=== PATIENT | female | born 1975 | race Two or more races ===

== ENCOUNTER → 2021-10-13 09:31 | Outpatient (BNVA) | payer OTHER, SELFPAY | PROVIDERS: PCP Internal Medicine; Visit Provider Internal Medicine Rheumatology | DX: Z79.899 Other long term (current) drug therapy (principal); M32.9 Systemic lupus erythematosus, unspecified; R76.0 Raised antibody titer; D47.2 Monoclonal gammopathy; M79.7 Fibromyalgia ==

== ENCOUNTER 2022-01-28 11:33 | Outpatient (REF) | payer OTHER, SELFPAY ==
[2022-01-28 13:59] LABS: MANUAL DIFF FLAG NO
[2022-01-28 14:10] LABS: Basophils Percent Auto 0.5 % (0-2); Eosinophils Absolute Auto 0.1 X10*3/uL (0.0-0.4); Eosinophils Percent Auto 1.1 % (0-4); Hematocrit 37.1 % (37.0-47.0); Hemoglobin 11.1 g/dl (12.0-16.0); Imm Gran Abs Auto 0.02 X10*3/uL (0.00-0.03); Imm Gran Pct Auto 0.4 % (0.0-0.4); Lymphocytes Absolute Auto 1.3 X10*3/uL (1.2-4.9); Lymphocytes Percent Auto 23.4 % (20-40); Mean Corpuscular HGB Conc 29.9 g/dl (31.0-35.0); Mean Corpuscular Hemoglobin 21.7 pg (27.0-33.0); Mean Corpuscular Volume 72.6 fL (80.0-98.0); Mean Platelet Volume 10.9 fL (9.4-12.3); Monocytes Absolute Auto 0.3 X10*3/uL (0.1-1.2); Monocytes Percent Auto 5.9 % (2-11); Neutrophils Absolute Auto 3.9 x10*3/uL (2.0-8.3); Neutrophils Percent Auto 68.7 % (45-73); Platelet Count 329 X10*3/uL (160-400); Red Blood Count 5.11 X10*6/uL (4.20-5.50); Red Cell Distribution Width 15.4 % (11.0-16.0); White Blood Count 5.6 X10*3/uL (4.8-10.8)
[2022-01-28 14:24] LABS: C Reactive Protein 2.93 mg/dL (< or = 0.50); Estimated Glomerular Filt Rate > 60
[2022-01-28 14:26] LABS: Creatinine Urine 241.89 mg/dL; Protein/Creatinine Ratio, Ur 0.05 (<0.2); Total Protein Urine Random 13 mg/dL (<12)
[2022-01-28 15:06] LABS: Erythrocyte Sedimentation Rate 9 MM/HR (0-20)
[2022-01-29 10:56] LABS: Complement C3 113 mg/dL (83-193)
[2022-02-04 06:05] LABS: Anti DNA DS Antibody 2 IU/mL
== END 2022-01-28 11:34 | disposition home or self-care (01) ==
LOC: HO.10HDL 11:33
PROVIDERS: Visit Provider Internal Medicine Rheumatology
DX: M32.9 Systemic lupus erythematosus, unspecified (principal)
CPT/HCPCS: 36415; 82565; 84156; 85025; 85652; 86140; 86160; 86225

== ENCOUNTER 2022-03-26 11:00 | Outpatient (REF) | payer OTHER, SELFPAY ==
[2022-03-26 13:34] LABS: MANUAL DIFF FLAG NO
[2022-03-26 13:41] LABS: Basophils Percent Auto 0.3 % (0-2); Eosinophils Absolute Auto 0.1 X10*3/uL (0.0-0.4); Eosinophils Percent Auto 0.8 % (0-4); Hemoglobin 10.8 g/dl (12.0-16.0); Imm Gran Abs Auto 0.02 X10*3/uL (0.00-0.03); Imm Gran Pct Auto 0.3 % (0.0-0.4); Lymphocytes Absolute Auto 1.5 X10*3/uL (1.2-4.9); Lymphocytes Percent Auto 24.8 % (20-40); Mean Corpuscular Volume 73.5 fL (80.0-98.0); Mean Platelet Volume 11.1 fL (9.4-12.3); Monocytes Absolute Auto 0.4 X10*3/uL (0.1-1.2); Monocytes Percent Auto 6.4 % (2-11); Neutrophils Absolute Auto 4.1 x10*3/uL (2.0-8.3); Neutrophils Percent Auto 67.4 % (45-73); Platelet Count 327 X10*3/uL (160-400); Red Cell Distribution Width 15.1 % (11.0-16.0); White Blood Count 6.1 X10*3/uL (4.8-10.8)
[2022-03-26 13:51] LABS: Anion Gap 15 (12-20); Blood Urea Nitrogen 10 mg/dL (9-16); C Reactive Protein 2.49 mg/dL (< or = 0.50); Calcium 8.8 mg/dL (8.4-10.2); Carbon Dioxide 27 mmol/L (22-29); Chloride 103 mmol/L (96-108); Estimated Glomerular Filt Rate > 60; Glucose Random 87 mg/dL (60-115); Sodium 141 mmol/L (135-145)
[2022-03-26 14:05] LABS: Creatinine Urine 42.82 mg/dL; Total Protein Urine Random < 7 mg/dL (<12)
[2022-03-26 14:07] LABS: Alanine Aminotransferase 10 U/L (0-31); Albumin Level 3.9 g/dL (3.5-5.0); Alkaline Phosphatase 65 U/L (39-117); Anion Gap 14 (12-20); Aspartate Amino Transferase 13 U/L (5-31); Bilirubin Total 0.3 mg/dL (0.0-1.0); Blood Urea Nitrogen 9 mg/dL (9-16); Calcium 8.7 mg/dL (8.4-10.2); Carbon Dioxide 27 mmol/L (22-29); Chloride 103 mmol/L (96-108); Estimated Glomerular Filt Rate > 60; Glucose Random 84 mg/dL (60-115); Potassium 4.1 mmol/L (3.3-5.1); Sodium 140 mmol/L (135-145); Total Protein 6.6 g/dL (6.5-8.0)
[2022-03-26 14:34] LABS: Erythrocyte Sedimentation Rate 10 MM/HR (0-20)
[2022-03-27 14:46] LABS: Beta-2 Microglobulin, Serum 1.67 mg/L (< OR = 2.51)
[2022-03-27 23:27] LABS: PES - Abn Protein Band 1 0.3 g/dL (NONE DETECTED); Prot Elec - Albumin 3.8 g/dL (3.8-4.8); Prot Elec - Alpha1 0.3 g/dL (0.2-0.3); Prot Elec - Alpha2 0.7 g/dL (0.5-0.9); Prot Elec - Beta 1 0.5 g/dL (0.4-0.6); Prot Elec - Beta 2 0.3 g/dL (0.2-0.5); Prot Elec - Gamma 1.1 g/dL (0.8-1.7); Prot Elec - Total Protein 6.7 g/dL (6.1-8.1)
[2022-03-29 10:51] LABS: Complement C3 112 mg/dL (83-193)
[2022-03-29 18:52] LABS: Anti DNA DS Antibody 1 IU/mL
[2022-03-30 12:11] LABS: IgA 141 mg/dL (47-310); IgG 1216 mg/dL (600-1640); IgM 127 mg/dL (50-300)
== END 2022-03-26 11:01 | disposition home or self-care (01) ==
LOC: HO.10HDL 11:00
PROVIDERS: Absent Provider Internal Medicine Medical Oncology; Visit Provider Internal Medicine Rheumatology
DX: D47.2 Monoclonal gammopathy (principal); M32.9 Systemic lupus erythematosus, unspecified; R76.0 Raised antibody titer; D50.9 Iron deficiency anemia, unspecified; D68.2 Hereditary deficiency of other clotting factors; Z79.899 Other long term (current) drug therapy
CPT/HCPCS: 36415; 80048; 80053; 82232; 82784; 84156; 84165; 85025; 85652; 86140; 86160; 86225; 86334

== ENCOUNTER 2022-06-08 16:32 | Outpatient (REF) | payer OTHER, SELFPAY ==
--- NOTE | ~2022-06-08 | CT_ITS ---
EXAMINATION: CT CHEST WITHOUT CONTRAST CLINICAL INFORMATION: Chronic dips COMPARISON: Chest x-ray 04/20/2018. TECHNIQUE: Multidetector volumetric CT imaging of the chest was done. Axial MIP volume rendering provided. Sagittal and coronal reformatted images were obtained. This CT examination was performed using dose optimization techniques as appropriate, variously including the following: *Automated exposure control *Adjustment of mA and/or kV according to patient size (this includes techniques or standardized protocols for targeted exams where dose is matched to indication/reason for exam; i.e. extremities or head) *Use of iterative reconstruction technique DLP: 179 mGy-cm FINDINGS: EDGER HAND: The lungs are well-expanded. LUNGS: The lungs are well-expanded and clear of acute pneumonic process. There are no pulmonary nodules, groundglass density or consolidation. MEDIASTINUM: The thyroid lobes are symmetrical and normal. The central trachea and the bronchi widely patent. Heart size and the great vessels are normal caliber. There is no pericardial effusion. Central trachea and the bronchi widely patent. Thyroid lobes are symmetrical and normal. CORONARY ARTERY CALCIFICATION: None visualized on this study. PLEURA: There is no pleural effusion. No pleural mass or thickening. AXILLA: There are numerous bilateral neck lymph nodes seen. Dense breast tissue is visualized centrally. UPPER ABDOMEN: Visualized liver, spleen, pancreas and bilateral adrenal glands are unremarkable. OSSEOUS STRUCTURES: No aggressive lytic or sclerotic process seen. There is mild ventral spondylosis mid and lower dorsal spine. CT/CT chest wo IV con IMPRESSION: Unremarkable CT chest exam. Fleischner guidelines were followed.
== END 2022-06-08 16:33 | disposition home or self-care (01) ==
LOC: HO.CT 16:32
PROVIDERS: PCP Internal Medicine; Visit Provider Physician Assistant
DX: R06.00 Dyspnea, unspecified (principal)
CPT/HCPCS: 71250

== ENCOUNTER → 2022-06-29 10:33 | Outpatient (BNVA) | payer OTHER, SELFPAY | PROVIDERS: PCP Internal Medicine; Visit Provider Hospitalist | DX: R06.00 Dyspnea, unspecified (principal); R00.0 Tachycardia, unspecified; J45.909 Unspecified asthma, uncomplicated; R76.0 Raised antibody titer; M32.9 Systemic lupus erythematosus, unspecified | CPT/HCPCS: 94618 ==

== ENCOUNTER → 2022-07-13 12:02 | Outpatient (REF) | payer OTHER, SELFPAY ==
--- NOTE | ~2022-07-13 | XR_ITS ---
EXAMINATION: XR CHEST CLINICAL INFORMATION: Tachycardia COMPARISON: April 20, 2018 TECHNIQUE: 2 views of the chest were obtained. FINDINGS: No significant abnormality is noted involving the heart, lungs, mediastinum, bony thorax or soft tissues. XR/XR chest 2V IMPRESSION: No acute disease.
--- NOTE | ~2022-07-13 | NM_ITS ---
EXAMINATION: PULMONARY PERFUSION STUDY CLINICAL INFORMATION: Tachycardia, unspecified. COMPARISON: No previous lung scan is available for comparison. Radiographs of the chest dated 07/13/2022, the same date as this lung scan, are available for comparison. TECHNIQUE: Following the intravenous injection of 4.0 mCi Tc-99m MAA, the lungs were imaged in the anterior and posterior, left and right lateral and ARMENIAN, ESPINO, LPO, and RPO projections using a gamma scintillation camera. FINDINGS: No segmental perfusion defects are present. There is homogeneous distribution of activity bilaterally. There are no focal anatomic appearing perfusion defects present. NM/NM pul perfusion IMPRESSION: Normal radionuclide lung perfusion scan.
== END ==
LOC: HO.NUCMED 12:02
PROVIDERS: PCP Internal Medicine; Visit Provider Hospitalist
DX: R06.00 Dyspnea, unspecified (principal); R00.0 Tachycardia, unspecified; R76.0 Raised antibody titer
CPT/HCPCS: 71046; 78580; A9540

== ENCOUNTER 2024-09-04 11:21 | Outpatient (REF) | payer BC, SELFPAY ==
[2024-09-04 11:42] LABS: MANUAL DIFF FLAG NO
[2024-09-04 12:03] LABS: Basophils Percent Auto 0.4 % (0-2); Eosinophils Absolute Auto 0.1 X10*3/uL (0.0-0.4); Eosinophils Percent Auto 1.1 % (0-4); Hematocrit 41.5 % (37.0-47.0); Hemoglobin 13.5 g/dl (12.0-16.0); Imm Gran Abs Auto 0.01 X10*3/uL (0.00-0.03); Imm Gran Pct Auto 0.1 % (0.0-0.4); Lymphocytes Absolute Auto 1.7 X10*3/uL (1.2-4.9); Lymphocytes Percent Auto 23.3 % (20-40); Mean Corpuscular HGB Conc 32.5 g/dl (31.0-35.0); Mean Corpuscular Hemoglobin 26.1 pg (27.0-33.0); Mean Corpuscular Volume 80.3 fL (80.0-98.0); Mean Platelet Volume 10.3 fL (9.4-12.3); Monocytes Absolute Auto 0.4 X10*3/uL (0.1-1.2); Monocytes Percent Auto 5.9 % (2-11); Neutrophils Percent Auto 69.2 % (45-73); Platelet Count 325 X10*3/uL (160-400); Red Blood Count 5.17 X10*6/uL (4.20-5.50); Red Cell Distribution Width 13.2 % (11.0-16.0); White Blood Count 7.3 X10*3/uL (4.8-10.8)
[2024-09-04 12:46] LABS: Alanine Aminotransferase 16 U/L (0-31); Albumin Level 3.9 g/dL (3.5-5.0); Alkaline Phosphatase 68 U/L (39-117); Anion Gap 10 (12-20); Aspartate Amino Transferase 15 U/L (5-31); Bilirubin Total 0.4 mg/dL (0.0-1.0); Blood Urea Nitrogen 11 mg/dL (9-16); Calcium 8.8 mg/dL (8.4-10.2); Carbon Dioxide 29 mmol/L (22-29); Chloride 104 mmol/L (96-108); Estimated Glomerular Filt Rate > 60; Glucose Random 90 mg/dL (60-115); Sodium 139 mmol/L (135-145)
[2024-09-04 13:00] LABS: Ferritin 274 ng/mL (10-250)
--- OUTSIDE RECORDS SUMMARY | 2024-09-04 13:30 | XMS_ITS | Clinical Summary ---
Author Organization [facility] Address [address] [place] [address] Phone Care Team Providers Care Chemistry Lecturer Name Role Phone Rob Villaseñor MD Primary Care Provider [phone] Allergies Active Allergy Reactions Criticality Noted Date Comments Flu Virus Vaccine Tv 2014- (18 Yr And Up),Recomb 12/12/2020 Twiching/body jerking during , son had CVA Latex Hives 05/28/2019 Other Unknown 05/14/2024 Oxycodone-Acetaminophen 07/13/2019 Age 21, developed twitching, jerking and hallucinations Phenergan Dm 05/28/2019 Tolerated oral formulation Received phenergan on same day as flu vaccine and jerking worsened Sulfa (Sulfonamide Antibiotics) 05/28/2019 Tomato Hives 01/15/2021 Medications cyanocobalamin (VITAMIN B-12) 2,000 mcg tablet Take 1 tablet (2,000 mcg total) by mouth 1 (one) time each day. Active ondansetron (ZOFRAN) 4 mg tablet Take 1 tablet (4 mg total) by mouth every 8 (eight) hours if needed. 4 Active albuterol 2.5 mg /3 mL (0.083 %) nebulizer solution Inhale 3 mL (2.5 mg total) by mouth. 4 Active cholecalciferol (VITAMIN D-3) 50 mcg (2,000 unit) tablet Take 1 tablet (2,000 Units total) by mouth 1 (one) time each day. 4 Active montelukast (SINGULAIR) 10 mg tablet Take 1 tablet (10 mg total) by mouth. 4 Active cetirizine (ZyrTEC) 10 mg tablet Take 1 tablet (10 mg total) by mouth 1 (one) time each day. 4 Active amitriptyline (ELAVIL) 10 mg tablet Take 1 tablet (10 mg total) by mouth. 3 Active propranolol LA (INDERAL LA) 60 mg 24 hr capsule Take 1 capsule (60 mg total) by mouth 1 (one) time each day. 3 Active LORazepam (ATIVAN) 0.5 mg tablet Take 1 tablet (0.5 mg total) by mouth. 3 Active hydroxychloroqu ine (PLAQUENIL) 200 mg tablet Take 1 tablet (200 mg total) by mouth 2 (two) times a day. 1 Active diphenhydrAMINE (BENADRYL) 25 mg capsule Take 2 capsules (50 mg total) by mouth. Active ibuprofen (ADVIL,MOTRIN) 200 mg tablet Take 1 tablet (200 mg total) by mouth. Active EPINEPHrine (EpiPen 2-Vic) 0.3 mg/0.3 mL injection Inject 0.3 mL (0.3 mg total) as directed. 1 Active B.animalis,bifi d,infantis,long (PROBIOTIC 4X ORAL) Take 1 capsule by mouth 1 (one) time each day. Active mirabegron (MYRBETRIQ) 25 mg 24 hr tablet Take 1 tablet (25 mg total) by mouth 1 (one) time each day. 4 Active metoclopramide (REGLAN) 5 mg tablet Take 1 tablet (5 mg total) by mouth 3 (three) times a day before meals. 90 each 3 5 05/14/19 26 Active albuterol HFA (PROAIR HFA ; PROVENTIL HFA ; VENTOLIN HFA) 90 mcg/actuation inhaler Inhale 2 puffs by mouth every 4 (four) hours if needed for wheezing or shortness of breath. 8.5 g 5 5 Active albuterol HFA (PROAIR HFA ; PROVENTIL HFA ; VENTOLIN HFA) 90 mcg/actuation inhaler Inhale 2 puffs by mouth 2 (two) times a day. 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 Overview (02/03/2024): Follows with heme/onc Seasonal asthma 04/02/2019 Encounters Date Type Department Care Team Description 08/15/2024 10:45 AM EDT Office Visit Orthopedic Surgery [facility] [address] [phone] Adin Abad DPM Achilles tendon tear, left, subsequent encounter (Primary Dx); Bone spur of posterior portion of left calcaneus 08/01/2024 6:37 PM EDT - 08/01/2024 11:59 PM EDT Hospital Encounter [facility] [address] [place] [phone] Achilles tendon tear, left, subsequent encounter Discharge Disposition: Home or Self Care 07/26/2024 8:15 AM EDT Office Visit Orthopedic [facility] [address] [phone] Adin Abad DPM Chronic pain of left ankle (Primary Dx); Achilles tendon tear, left, subsequent encounter 07/20/2024 Telephone Adult Medicine [facility] [address] [place] [phone] Mansi Johnson RN Referral ([facility]) 06/28/2024 8:45 AM EST Consult Orthopedic Surgery - [place] [address] [place] [address] [address] [place] [address] Adin Abad DPM Achilles tendinitis, left leg (Primary Dx); Left ankle pain from Last 3 Months Surgical History Surgery Date Site/Laterality Comments BREAST REDUCTION 2006 PROCEDURE: [place] BREAST REDUCTION OTHER SURGICAL HISTORY PROCEDURE: UTERINE ARTERY EMBOLIZ; COMMENT: x3, last 2017 HERNIA REPAIR 2004 Left PROCEDURE: REPAIR INGUINAL HERNIA OTHER SURGICAL HISTORY PROCEDURE: HISTORICAL EAR SURGERY; COMMENT: tubes as child Medical History Medical History Date Comments Seasonal asthma DX:Seasonal asth ma Clotting disorder (CMS/HCC V24) DX:Clotting disorder (HCC); COMMENT: Factor 7 deficiency, sees heme/onc Family History Medical History Relation Name Comments Other: htn Brother x2 DMII Hypertension Father diabetes, arthr itis, HLD, depression Heart attack Mother age 60, d, HTN, liver cirrhosis, hep c, arthritis, thyroid issues Other: DMII Mother's side thyroid cancer Hypertension Sister Other: hydrocephalus Son seizure s, autism, lung issues, eczema Relation Name Status Comments Brother x2 Alive Father Alive Mother Mother's side Sister Son Social History Tobacco Use Types Packs/Day Years Used Date Smoking Tobacco: Never Smokeless Tobacco: Never Alcohol Use Standard Drinks/Week Comments Yes 0 (1 standard drink = 0.6 oz pur e alcohol) Comments Unknown Sex and Gender Information Value Date Recorded Sex Assigned at Not on file Legal Sex Female 1:02 AM EST Gender Identity Choose not to disclose 4:27 PM EST Sexual Orientation Not on file Obstetrics History Last Filed Vital Signs Vital Sign Reading Time Taken Comments Blood Pressure 118/78 05/14/2024 11:09 AM EST Pulse 104 02/02/2024 4:59 PM EDT Temperature - - Respiratory Rate - - Oxygen Saturation 98% 10/10/2023 3:2 3 PM EDT at rest, room air Inhaled Oxygen Concentration - - Weight 102 kg (225 lb) 08/15/2024 10:48 AM EDT Height 162.6 cm (5' 4.02 ) 08/15/2024 1 0:48 AM EDT Body Mass Index 38.6 08/15/2024 10:48 AM EDT Plan of Treatment Upcoming Encounters Date Type Department Care Team (Late st Contact Info) Description 10/12/2024 4:00 PM EDT Office Visit Adult Medicine [facility] [address] [place] [address] Rob Villaseñor MD [address] [place] [phone] Scheduled Procedures Name Priority Associated Diagnoses Date/Ti me REPAIR TENDON ACHILLES Achilles tendon tear, left, subsequent encounter Bone spur of posterior portion of left calcaneus EXCISION BONE SPUR LOWER EXTREMITY Achilles tendon tear, left, subsequent encounter Bone spur of posterior portion of left calcaneus Health Maintenance Due Date Last Done Comments DTaP,Tdap,and Td Vaccines (1 - Tdap) 12/08/1994 Hepatitis B Vaccines (1 of 3 - 19+ 3-dose series) 12/08/1994 Pneumococcal Vaccine: Pediat rics (0 to 5 Years) and At-Risk Patients (6 to 64 Years) (1 of 2 - PCV) 12/08/1994 Cervical Cancer Screening: P ap Smear 12/08/1996 Breast Cancer Screening 05/20/2019 05/20/2017 COVID-19 Vaccine (2 - Modern a risk series) 01/08/2022 12/11/2021 Colorectal Cancer Screening: Colonoscopy 04/11/2022 Depression Screening 04/11/2022 HIV Screening 04/11/2022 Hepatitis C Screening 04/11/2022 Social Influencers of Health Screening 04/11/2022 Influenza Vaccine (Season Ended) 2025 Cholesterol Screening (Lipid Panel) 06/28/2028 06/28/2023 HIB Vaccines Aged Out No longer eligi ble based on patient's age to complete this topic HPV Vaccines Aged Out No longer eligi ble based on patient's age to complete this topic Hepatitis A Vaccines Aged Out No long er eligible based on patient's age to complete this topic IPV Vaccines Aged Out No longer eligi ble based on patient's age to complete this topic MMR Vaccines Aged Out No longer eligi ble based on patient's age to complete this topic Meningococcal ACWY Vaccine Aged Out N o longer eligible based on patient's age to complete this topic Meningococcal B Vaccine Aged Out No l onger eligible based on patient's age to complete this topic RSV Immunization Patients Un amber 20 months Aged Out No longer eligible b ased on patient's age to complete this topic Varicella Vaccines Aged Out No longer eligible based on patient's age to complete this topic Procedures Procedure Name Priority Date/Time Associated Diagnosis Comments MR ANKLE WO CONTRAST LEFT Routine 08/01/2024 7:50 PM EDT Achilles tendon tear, left, subsequent encounter from Last 3 Months Results * MR Ankle wo Contrast Left (08/01/2024 7:50 PM EDT) Anatomical Region Laterality Modality Lower Extremities, Ankle Left Magneti c Resonance 08/07/2024 2:52 PM EDT Impressions 08/07/2024 3:07 PM EDT Achilles tendinosis with mild surrounding edema/inflammation. ??No Achilles tendon tear. Mild retrocalcaneal bursitis. Evidence of old injury at the medial and lateral ankle ligaments. -------- FINAL REPORT -------- Dictated By: LINDA STAPLES Dictated Date: 08/07/2024 14:52 ET Assigned Physician: LINDA STAPLES Reviewed and Electronically Signed By: LINDA STAPLES Signed Date: 08/07/2024 15:07 ET Workstation ID: [id number] Transcribed By: Self Edit Transcribed Date: 08/07/2024 15:03 ET Narrative 08/07/2024 3:07 PM EDT PROCEDURE: Left ankle MRI INDICATION: Pain TECHNIQUE: Multiplanar, multisequence MRI of the left ankle Without contrast. COMPARISON: ??No priors available. FINDINGS: No fracture or suspicious marrow replacing lesion. Tibiotalar and subtalar articular cartilage is preserved. ??No significant joint effusions. Thickening and high signal of the tibiofibular, talofibular, calcaneofibular ligaments, most likely related to old injury. Thickening and high signal of the spring ligament and deltoid ligament complex, most likely related to old injury. Peroneal tendons are intact. Posterior tibial tendinosis without tear. ??Flexor tendons are intact. Anterior tibial tendon and extensor tendons are intact. Achilles tendinosis with enthesopathy and mild surrounding edema laterally at the calcaneal attachment site. ??Small retrocalcaneal bursal fluid. Plantar fascia is intact. ??No significant surrounding edema. Muscle bulk is preserved. ??There are vascular structures are unremarkable. Sinus tarsus signal is normal. ??Tarsal tunnel is normal. Procedure Note Linda Staples MD - 08/07/2024 PROCEDURE: Left ankle MRI INDICATION: Pain TECHNIQUE: Multiplanar, multisequence MRI of the left ankle Withoutcontrast. COMPARISON: No priors available. FINDINGS: No fracture or suspicious marrow replacing lesion. Tibiotalar and subtalar articular cartilage is preserved. No significantjoint effusions. Thickening and high signal of the tibiofibular, talofibular,calcaneofibular ligaments, most likely related to old injury. Thickening and high signal of the spring ligament and deltoid ligamentcomplex, most likely related to old injury. Peroneal tendons are intact. Posterior tibial tendinosis without tear. Flexor tendons are intact. Anterior tibial tendon and extensor tendons are intact. Achilles tendinosis with enthesopathy and mild surrounding edema laterallyat the calcaneal attachment site. Small retrocalcaneal bursal fluid. Plantar fascia is intact. No significant surrounding edema. Muscle bulk is preserved. There are vascular structures areunremarkable. Sinus tarsus signal is normal. Tarsal tunnel is normal. IMPRESSION: Achilles tendinosis with mild surrounding edema/inflammation. No Achillestendon tear. Mild retrocalcaneal bursitis. Evidence of old injury at the medial and lateral ankle ligaments. -------- FINAL REPORT -------- Dictated By: LINDA STAPLES Dictated Date: 08/07/2024 14:52 ET Assigned Physician: LINDA STAPLES Reviewed and Electronically Signed By: LINDA STAPLES Signed Date: 08/07/2024 15:07 ET Workstation ID: [id number] Transcribed By: Self Edit Transcribed Date: 08/07/2024 15:03 ET Adin Abad DPM IMG MRI PROCEDURES Final Re sult from Last 3 Months Insurance [facility] Care Teams Chemistry Lecturer Relationship Specialty Start Date End Date Rob Villaseñor MD [address] [place] [phone] PCP - General Internal Medicine 11/13/19
[2024-09-05 12:18] LABS: Kappa Light Chain, Free Serum 29.4 mg/L (3.3-19.4); Kappa/Lambda Lt Ch Free Ratio 2.28 (0.26-1.65); Lambda Light Chain, Free Serum 12.9 mg/L (5.7-26.3)
[2024-09-06 02:39] LABS: Beta-2 Microglobulin, Serum 1.77 mg/L (< OR = 2.51)
[2024-09-06 18:39] LABS: PES - Abn Protein Band 1 0.5 g/dL (NONE DETECTED); Prot Elec - Albumin 3.8 g/dL (3.8-4.8); Prot Elec - Alpha1 0.3 g/dL (0.2-0.3); Prot Elec - Alpha2 0.7 g/dL (0.5-0.9); Prot Elec - Beta 1 0.4 g/dL (0.4-0.6); Prot Elec - Beta 2 0.3 g/dL (0.2-0.5); Prot Elec - Gamma 1.3 g/dL (0.8-1.7)
[2024-09-07 17:28] LABS: IgA 174 mg/dL (47-310); IgG 1521 mg/dL (600-1640); IgM 147 mg/dL (50-300)
[2024-09-10 16:14] LABS: Kappa, Serum 330 mg/dL (176-443); Kappa/Lambda Ratio, Serum 2.89 (1.29-2.55); Lambda, Serum 114 mg/dL (91-240)
== END 2024-09-04 11:22 | disposition home or self-care (01) ==
LOC: HO.LAB 11:21
PROVIDERS: PCP Internal Medicine Medical Oncology; Visit Provider Internal Medicine Medical Oncology
DX: D50.9 Iron deficiency anemia, unspecified (principal); D47.2 Monoclonal gammopathy; D68.2 Hereditary deficiency of other clotting factors
CPT/HCPCS: 36415; 80053; 82232; 82728; 82784; 83521; 83883; 84165; 85025; 86334